=== PATIENT | male | born 1965 | race Two or more races ===

== ENCOUNTER 2017-03-28 21:20 | Emergency (ER) | payer MEDICAID, OTHER ==
[~2017-03-28] VITALS: Ht 170.2 cm; Wt 99.8 kg
[2017-03-29] MEDS ORDERED: SODIUM CHLORIDE 0.9% 500 ML IVB ONE (02:00)
[2017-03-29] MEDS ORDERED: CLINDAMYCIN 900MG IV 50 ML IV ONE (02:00)
[2017-03-29] MEDS ORDERED: IOHEXOL 350 MG/ML 100ML IJ ONE (02:03)
[2017-03-29 02:32] LABS: Basophils # (auto) 0.1 uL; Basophils % (auto) 0.9 % (0.0-2.0); Eosinophils # (auto) 0.1 uL; Eosinophils % (auto) 1.1 % (0.0-7.0); Hematocrit 44.6 % (41.0-53.0); Hemoglobin 15.2 g/dL (13.5-17.5); Lymphocytes % (auto) 33.6 % (10.0-50.0); Mean Corpuscular Hemoglobin 30.8 pg (28.0-32.0); Mean Corpuscular Hgb Conc. 34.1 g/dL (32.0-36.0); Mean Corpuscular Volume 90.3 fL (80.0-100.0); Mean Platelet Volume 8.1 fL (6.9-10.8); Monocytes # (auto) 0.6 uL; Monocytes % (auto) 6.7 % (0.0-12.0); Neutrophils # (auto) 5.1 uL; Neutrophils % (auto) 57.7 % (37.0-80.0); Nucleated Red Blood Cells % 0.2 %; Platelet Count (auto) 261 10^3/uL (140-450); Red Cell Distribution Width 13.2 % (11.8-14.3); White Blood Cell 8.8 10^3/uL (4.4-10.8)
[2017-03-29 02:53] LABS: Albumin 3.7 g/dL (3.4-5.0); BUN/Creatinine Ratio 23.8; Bilirubin, Total 0.4 mg/dL (0.2-1.0); Calcium 8.6 mg/dL (8.5-10.1); Potassium 3.8 mmol/L (3.5-5.1); Total Protein 7.6 g/dL (6.4-8.2)
[2017-03-29 04:17] VITALS: BP 108/70
[2017-03-29] MEDS ORDERED: GENTAMICIN SULF 0.3% OPTH(EYE) OINT 3.5GM RIGHTEYE ONE (05:30)
== END 2017-03-29 05:39 | disposition home or self-care (01) ==
LOC: ER 21:30
DX: H05.011 Cellulitis of right orbit (principal)
CPT/HCPCS: 36415; 70481; 80053; 85025; 86141; 87040; 96365; 96366; 99285; J3490; J7030; Q9967

== ENCOUNTER 2017-03-30 12:56 | Emergency (ER) | payer OTHER ==
[~2017-03-30] VITALS: Ht 170.2 cm; Wt 99.8 kg
[2017-03-30 14:12] VITALS: BP 149/93
== END 2017-03-30 14:32 | disposition home or self-care (01) ==
LOC: ER 12:56
DX: H01.001 Unspecified blepharitis right upper eyelid (principal)